=== PATIENT | female | born 1985 | race Caucasian/White ===

== ENCOUNTER → 2019-06-08 | Outpatient (CLI) | payer BC ==
[2019-06-08 13:48] LABS: HEMATOCRIT 36 % (35-52); HEMOGLOBIN 12.3 G/DL (11.5-16.0); MEAN CORPUSCULAR HEMOGLOBIN 29 PG (25-34); WHITE BLOOD COUNT 6.7 10^3/uL (4.3-11.0)
[2019-06-08 13:49] LABS: BASOPHILS % (AUTO) 0 % (0-10); EOSINOPHILS # (AUTO) 0.1 10^3/uL (0.0-0.3); EOSINOPHILS % (AUTO) 1 % (0-10); LYMPHOCYTES # (AUTO) 1.5 X 10^3 (1.0-4.0); LYMPHOCYTES % (AUTO) 22 % (12-44); MEAN CORPUSCULAR HGB CONC 34 G/DL (32-36); MEAN CORPUSCULAR VOLUME 85 FL (80-99); MEAN PLATELET VOLUME 10.2 FL (7.4-10.4); MONOCYTES # (AUTO) 0.4 X 10^3 (0.0-1.0); MONOCYTES % (AUTO) 6 % (0-12); NEUTROPHILS # (AUTO) 4.7 X 10^3 (1.8-7.8); NEUTROPHILS % (AUTO) 71 % (42-75); PLATELET COUNT 236 10^3/uL (130-400); RED CELL DISTRIBUTION WIDTH 12.8 % (10.0-14.5)
== END ==
LOC: LAB FS 11:39
PROVIDERS: ATTEND Family Medicine
DX: O09.90 Supervision of high risk pregnancy, unspecified, unspecified trimester (principal)
CPT/HCPCS: 36415; 80055; 84443; 86703; 87088

== ENCOUNTER → 2019-07-06 | Outpatient (CLI) | payer BC | LOC: LABNPT 11:25 | PROVIDERS: ATTEND Family Medicine | DX: Z34.90 Encounter for supervision of normal pregnancy, unspecified, unspecified trimester (principal) | CPT/HCPCS: 87491; 87591 ==

== ENCOUNTER → 2019-11-02 | Outpatient (CLI) | payer BC | LOC: LABNPT 14:37 | PROVIDERS: ATTEND Family Medicine | DX: Z34.90 Encounter for supervision of normal pregnancy, unspecified, unspecified trimester (principal); Z3A.00 Weeks of gestation of pregnancy not specified | CPT/HCPCS: 87081 ==

== ENCOUNTER 2019-11-16 10:31 | Inpatient (IN) | payer BC ==
[2019-11-16] VITALS (62 sets, daily range): BP systolic 84–153; BP diastolic 42–79
[~2019-11-16] VITALS: Ht 160 cm; Wt 101.1 kg
--- NOTE | 2019-11-16 10:37 | NUR ---
DEN FIERRO presented to unit via ambulation from office, accompanied by S.O., with c/o LABOR. DEN FIERRO weighed, gowned, voided, and to bed. EFHM and TOCO applied, VS taken. DEN FIERRO oriented to bed controls, call light, TV, heat, and A/C controls.
[2019-11-16] MEDS ORDERED: MINERAL OIL CONCENTRATE 99.9% 15 ML UDC TOP PRN (10:45)
[2019-11-16] MEDS ORDERED: D5 LR IV SOLUTION 1,000 ML IV ONE (11:00)
[2019-11-16] MEDS: D5 LR IV SOLUTION 1,000 ML IV SCH ×2 (11:18→18:10)
[2019-11-16 11:29] LABS: BASOPHILS % (AUTO) 0 % (0-10); EOSINOPHILS % (AUTO) 0 % (0-10); HEMATOCRIT 31 % (35-52); HEMOGLOBIN 10.3 G/DL (11.5-16.0); LYMPHOCYTES # (AUTO) 1.6 X 10^3 (1.0-4.0); LYMPHOCYTES % (AUTO) 20 % (12-44); MEAN CORPUSCULAR HEMOGLOBIN 27 PG (25-34); MEAN CORPUSCULAR HGB CONC 33 G/DL (32-36); MEAN CORPUSCULAR VOLUME 80 FL (80-99); MEAN PLATELET VOLUME 9.8 FL (7.4-10.4); MONOCYTES # (AUTO) 0.4 X 10^3 (0.0-1.0); MONOCYTES % (AUTO) 5 % (0-12); NEUTROPHILS # (AUTO) 6.2 X 10^3 (1.8-7.8); NEUTROPHILS % (AUTO) 75 % (42-75); PLATELET COUNT 252 10^3/uL (130-400); RED CELL DISTRIBUTION WIDTH 14.4 % (10.0-14.5); WHITE BLOOD COUNT 8.3 10^3/uL (4.3-11.0)
[2019-11-16] MEDS ORDERED: fentaNYL 2 mcg/ml BUPIVA 0.125 100 ML ONE (11:53)
[2019-11-16] MEDS ORDERED: BUPIVACAINE 0.25% 30 ML (SENSORCAINE) VIAL ONE (12:01)
[2019-11-16] MEDS ORDERED: fentaNYL INJECTION 100 MCG/2 ML AMP ONE (12:01)
[2019-11-16] MEDS ORDERED: OXYTOCIN PRE-MIX DRIP 500 ML IV SCH ×2 (12:21→22:23)
[2019-11-16] MEDS: fentaNYL 2 mcg/ml BUPIVA 0.125 100 ML IV SCH ×2 (12:27→20:21)
[2019-11-16] MEDS ORDERED: LACTATED RINGERS 1,000 ML IV ONE (12:37)
[2019-11-16] MEDS ORDERED: ONDANSETRON 4 MG/2 ML (SDV) Z0FRAN IV PRN (12:45)
[2019-11-16] MEDS ORDERED: diphenhydrAMINE 50 MG/ML INJ (BENADRYL) IV PRN (12:45)
[2019-11-16] MEDS ORDERED: NALOXONE 0.4 MG/ML 1 ML (NARCAN) VIAL IV PRN (12:45)
[2019-11-16] MEDS ORDERED: CATHETER FLUSH 10 ML SYR IV PRN (12:45)
[2019-11-16] MEDS ORDERED: CATHETER FLUSH 10 ML SYR IV SCH (14:00)
[2019-11-16] MEDS ORDERED: PREN-102 PO (18:05)
--- NOTE | 2019-11-16 18:41 | Labor Progress Note ---
Labor Progress Note Labor Progress Note Date Seen by Provider: Nov 16, 2019 Time Seen by Provider: 18:30 Subjective: Pt denies complaints. Epidural is very effective, right leg entirely numb. Objective: Vital Signs 11/16/19 11/16/19 14:40 17:35 Temp 36.7 Pulse 101 Resp 16 B/P (MAP) 123/62 (82) Pulse Ox 98 O2 Delivery Room Air Cervical exam: [6/-1] Consistency: [Soft] Position: [Midline] Presentation: [Vertex] heart tones: [150] beats per minute, [moderate] variability, reactive, accels, no decels Tocometer: [4] ctx/10 minutes Assessment/Plan: Germania Taylor is a (34 /Para 3/2 ,Gestational Age (wks)38 (days) 1 here for [labor]. CEFM/TOCO Continue pitocin Amniotomy, no fluid expulsion, head well engaged Anesthesia: [Epidural] Anticipate vaginal delivery. Nurse, Maria Fernanda Babcock, communicated the above findings with Dr. Wade. Vitals - Labs Vital Signs - I&O Vital Signs Date Time Temp Pulse Resp B/P (MAP) Pulse Ox O2 Delivery O2 Flow Rate FiO2 11/16/19 17:35 36.7 101 16 123/62 (82) Room Air 11/16/19 17:20 100 16 128/64 (85) Room Air 11/16/19 17:05 103 16 104/52 (69) Room Air 11/16/19 16:50 100 16 104/50 (68) Room Air 11/16/19 16:35 36.5 106 16 90/53 (65) Room Air 11/16/19 16:20 106 16 92/50 (64) Room Air 11/16/19 16:10 106 16 112/51 (71) Room Air 11/16/19 15:50 89 16 128/62 (84) Room Air 11/16/19 15:35 93 16 124/63 (83) Room Air 11/16/19 15:20 96 16 123/58 (79) Room Air 11/16/19 15:05 96 16 119/60 (79) Room Air 11/16/19 14:50 97 16 118/59 (78) Room Air 11/16/19 14:40 36.6 97 16 116/62 (80) 98 Room Air 8/24/20 14:20 97 16 118/66 (83) 95 Room Air 11/16/19 14:05 99 16 126/59 (81) 98 Room Air 11/16/19 13:50 110 16 117/63 (81) 94 Room Air 11/16/19 13:34 112 16 131/72 (91) 96 Room Air 11/16/19 13:28 102 16 132/62 (85) 94 Room Air 11/16/19 13:22 94 16 129/67 (87) 94 Room Air 11/16/19 13:18 105 16 123/64 (83) 95 Room Air 11/16/19 13:13 113 16 122/58 (79) 96 Room Air 11/16/19 13:08 36.6 113 16 119/59 (79) 96 Room Air 11/16/19 13:00 112 16 118/57 (77) 94 Room Air 11/16/19 12:57 104 16 119/59 (79) 93 Room Air 11/16/19 12:54 116 16 112/57 (75) 95 Room Air 11/16/19 12:51 109 16 119/60 (79) 96 Room Air 11/16/19 12:48 118 16 115/58 (77) Room Air 11/16/19 12:45 114 16 109/56 (73) 96 Room Air 11/16/19 12:42 114 16 123/58 (79) Room Air 11/16/19 12:39 115 16 104/52 (69) 97 Room Air 11/16/19 12:36 120 16 91/50 (64) 97 Room Air 11/16/19 12:31 122 16 84/48 (60) 96 Room Air 11/16/19 12:30 84 16 85/42 (56) 97 Room Air 11/16/19 12:27 112 16 120/58 (78) 98 Room Air 11/16/19 12:24 114 16 122/67 (85) 98 Room Air 11/16/19 12:20 101 16 134/69 (90) 97 Room Air 11/16/19 12:10 102 16 129/75 (93) 98 Room Air 11/16/19 10:55 36.5 100 18 98 Room Air Labs Laboratory Tests 11/16/19 11:15: White Blood Count 8.3, Red Blood Count 3.87L, Hemoglobin 10.3L, Hematocrit 31L, Mean Corpuscular Volume 80, Mean Corpuscular Hemoglobin 27, Mean Corpuscular Hemoglobin Concent 33, Red Cell Distribution Width 14.4, Platelet Count 252, Mean Platelet Volume 9.8, Neutrophils (%) (Auto) 75, Lymphocytes (%) (Auto) 20, Monocytes (%) (Auto) 5, Eosinophils (%) (Auto) 0, Basophils (%) (Auto) 0, Neutrophils # (Auto) 6.2, Lymphocytes # (Auto) 1.6, Monocytes # (Auto) 0.4, Eosinophils # (Auto) 0.0, Basophils # (Auto) 0.0 JESSICA MANN MD Nov 16, 2019 18:41
--- NOTE | 2019-11-16 21:32 | History & Physical-OB ---
OB - Chief Complaint & HPI Date/Time Date of Admission: Date of Admission: Nov 16, 2019 at 10:31 Date seen by a Provider: Nov 16, 2019 Time Seen by a Provider: 20:00 Chief Complaint/History OB-Reason for Admission/Chief: Onset of Labor Hx : 3 Hx Para: 2 Expected Date of Delivery: Nov 29, 2019 Gestational Age in Weeks: 38 Gestational Age in Days: 1 Admission Nurse Assessment Rev: Yes Allergies and Home Medications Allergies Coded Allergies: No Known Drug Allergies (Unverified , 11/16/19) Patient Home Medication List Home Medication List Reviewed: Yes OB - History Hx of Present Care: Yes Ultrasounds: Normal mid trimester US Obstetrical Complications: None Medical Complications: None Patient Past Medical History previously healthy Social History/Family History HIV/AIDS: No Recent Infectious Disease Expo: No Sexually Transmitted Disease: No Alcohol Use: Denies Use Recreational Drug Use: No Immunizations Hepatitis A: Yes Hepatitis B: Yes OB - Admission Exam Physical Exam Vitals: Vital Signs 11/16/19 11/16/19 11/16/19 14:40 19:05 20:20 Temp 36.8 Pulse 100 Resp 16 B/P (MAP) 114/57 (76) Pulse Ox 98 O2 Delivery Room Air HEENT: NCAT Heart: Rhythm Normal Lungs: Clear Abdomen: Gravid Extremities: Normal Reflexes: Normal Cervical Dilatation: 6cm Effacement: 75% Station: 0 Membranes: Ruptured Amniotic Fluid: Clear Heart Rate: 130's Accelerations: Accelerations Present Decelerations: Variable Decelerations Short Term Variability: Present Monitoring Engineer Variability: Average (6-25) Contractions on Admission: < 5 Minutes Apart Labs Laboratory Tests Test 11/16/19 11:15 Range/Units White Blood Count 8.3 4.3-11.0 10^3/uL Red Blood Count 3.87 L 4.35-5.85 10^6/uL Hemoglobin 10.3 L 11.5-16.0 G/DL Hematocrit 31 L 35-52 % Mean Corpuscular Volume 80 80-99 FL Mean Corpuscular Hemoglobin 27 25-34 PG Mean Corpuscular Hemoglobin Concent 33 32-36 G/DL Red Cell Distribution Width 14.4 10.0-14.5 % Platelet Count 252 130-400 10^3/uL Mean Platelet Volume 9.8 7.4-10.4 FL Neutrophils (%) (Auto) 75 42-75 % Lymphocytes (%) (Auto) 20 12-44 % Monocytes (%) (Auto) 5 0-12 % Eosinophils (%) (Auto) 0 0-10 % Basophils (%) (Auto) 0 0-10 % Neutrophils # (Auto) 6.2 1.8-7.8 X 10^3 Lymphocytes # (Auto) 1.6 1.0-4.0 X 10^3 Monocytes # (Auto) 0.4 0.0-1.0 X 10^3 Eosinophils # (Auto) 0.0 0.0-0.3 10^3/uL Basophils # (Auto) 0.0 0.0-0.1 10^3/uL OB - Assessment/Plan/Diagnosis Assessment Assessment: active labor Admission Dx Normal labor at 38 1/7 wga. Admission Status: Inpatient Order (span 2 midnights) Reason for Inpatient Admission: Normal labor. Plan Induction Method: per Pitocin Protocol Other Plan GBS negative. AROM and pitocin to help augment. RACHAEL SOLANO MD Nov 16, 2019 21:32
[2019-11-16] MEDS ORDERED: LIDOCAINE/EPI 2% 1:200,00 (XYLOCAINE) 10 ML VIAL ONE (21:47)
--- NOTE | 2019-11-16 22:23 | OB Labor & Delivery Record ---
Vag Delivery Note Vag Delivery Note Date of Delivery: 11/16/19 Preoperative Diagnosis: Germania Taylor is a (34 /Para 3 / 2, Gestational Age (wks)38with [1 day] Postoperative Diagnosis: Same Surgeon: RACHAEL SOLANO Data Solutions Architect: [none] Anesthesia: [epidural] Delivery Type: [] Findings: Viable [male] infant, apgars [9/9], weight [9 pounds 0 ounces] Lacerations: Intact placenta with 3 vessel cord. No nuchal cord, body cord or shoulder dystocia Estimated Blood Loss: [250] ml Complications: None Condition: Stable Description of Procedure: The patient is a 34 year old female who presented [in labor]. She was admitted and informed consent was obtained. Her labor course was remarkable for [nothing] She progressed to complete dilatation and began to push. She was then set up for delivery. The 's head was delivered atraumatically in the [OA] position. The shoulders and remainder of the infant's body were then delivered without difficulty. Upon delivery, the head was held below the level of the perineum and the mouth and nares were bulb suctioned. The cord was doubly clamped and cut after 60 seconds by father of the baby. An intact placenta with 3-vessel cord delivered via [place] and there was found to be minimal bleeding.~ Vigorous fundal massage was performed and the fundus was found to be firm. IV oxytocin was given. Examination of the vagina and perineum revealed a [1st degree perineal and right labial] laceration repaired in the usual fashion with 3-0 vicryl suture. Following the repair, sponge, instrument and needle counts were correct. Mom and baby were both in stable condition in the labor suite. Vitals - Labs Vital Signs - I&O Vital Signs Date Time Temp Pulse Resp B/P (MAP) Pulse Ox O2 Delivery O2 Flow Rate FiO2 11/16/19 20:20 100 16 114/57 (76) Room Air 11/16/19 20:05 103 16 117/61 (79) Room Air 11/16/19 19:50 120 16 110/58 (75) Room Air 11/16/19 19:35 106 16 110/59 (76) Room Air 11/16/19 19:20 100 16 114/55 (74) Room Air 11/16/19 19:05 36.8 104 16 115/55 (75) Room Air 11/16/19 18:50 102 16 108/56 (73) Room Air 11/16/19 18:35 114 16 106/59 (75) Room Air 11/16/19 18:20 101 16 109/56 (73) Room Air 20 18:05 114 16 118/57 (77) Room Air 11/16/19 17:50 113 16 125/60 (81) Room Air 11/16/19 17:35 36.7 101 16 123/62 (82) Room Air 11/16/19 17:20 100 16 128/64 (85) Room Air 11/16/19 17:05 103 16 104/52 (69) Room Air 11/16/19 16:50 100 16 104/50 (68) Room Air 11/16/19 16:35 36.5 106 16 90/53 (65) Room Air 11/16/19 16:20 106 16 92/50 (64) Room Air 11/16/19 16:10 106 16 112/51 (71) Room Air 11/16/19 15:50 89 16 128/62 (84) Room Air 11/16/19 15:35 93 16 124/63 (83) Room Air 11/16/19 15:20 96 16 123/58 (79) Room Air 11/16/19 15:05 96 16 119/60 (79) Room Air 11/16/19 14:50 97 16 118/59 (78) Room Air 11/16/19 14:40 36.6 97 16 116/62 (80) 98 Room Air 11/16/19 14:20 97 16 118/66 (83) 95 Room Air 11/16/19 14:05 99 16 126/59 (81) 98 Room Air 11/16/19 13:50 110 16 117/63 (81) 94 Room Air 11/16/19 13:34 112 16 131/72 (91) 96 Room Air 11/16/19 13:28 102 16 132/62 (85) 94 Room Air 11/16/19 13:22 94 16 129/67 (87) 94 Room Air 11/16/19 13:18 105 16 123/64 (83) 95 Room Air 11/16/19 13:13 113 16 122/58 (79) 96 Room Air 11/16/19 13:08 36.6 113 16 119/59 (79) 96 Room Air 11/16/19 13:00 112 16 118/57 (77) 94 Room Air 11/16/19 12:57 104 16 119/59 (79) 93 Room Air 11/16/19 12:54 116 16 112/57 (75) 95 Room Air 11/16/19 12:51 109 16 119/60 (79) 96 Room Air 11/16/19 12:48 118 16 115/58 (77) Room Air 11/16/19 12:45 114 16 109/56 (73) 96 Room Air 11/16/19 12:42 114 16 123/58 (79) Room Air 11/16/19 12:39 115 16 104/52 (69) 97 Room Air 11/16/19 12:36 120 16 91/50 (64) 97 Room Air 11/16/19 12:31 122 16 84/48 (60) 96 Room Air 11/16/19 12:30 84 16 85/42 (56) 97 Room Air 11/16/19 12:27 112 16 120/58 (78) 98 Room Air 11/16/19 12:24 114 16 122/67 (85) 98 Room Air 11/16/19 12:20 101 16 134/69 (90) 97 Room Air 11/16/19 12:10 102 16 129/75 (93) 98 Room Air 11/16/19 10:55 36.5 100 18 98 Room Air Labs Laboratory Tests 11/16/19 11:15: White Blood Count 8.3, Red Blood Count 3.87L, Hemoglobin 10.3L, Hematocrit 31L, Mean Corpuscular Volume 80, Mean Corpuscular Hemoglobin 27, Mean Corpuscular Hemoglobin Concent 33, Red Cell Distribution Width 14.4, Platelet Count 252, Mean Platelet Volume 9.8, Neutrophils (%) (Auto) 75, Lymphocytes (%) (Auto) 20, Monocytes (%) (Auto) 5, Eosinophils (%) (Auto) 0, Basophils (%) (Auto) 0, Neutrophils # (Auto) 6.2, Lymphocytes # (Auto) 1.6, Monocytes # (Auto) 0.4, Eosinophils # (Auto) 0.0, Basophils # (Auto) 0.0 RACHAEL SOLANO MD Nov 16, 2019 22:23
[2019-11-16] MEDS ORDERED: TETANUS,DIPTH,PERTUSS P/F (BOOSTRIX) 0.5 ML VIAL IM ONE (22:30)
[2019-11-16] MEDS ORDERED: WITCH HAZEL(TUCKS) 40 EA JAR TOP PRN (22:30)
[2019-11-16] MEDS ORDERED: BENZOCAINE/MENTHOL (DERMOPLAST) 60 ML CAN TP PRN (22:30)
[2019-11-16] MEDS ORDERED: MEASLES,MUMPS,RUBELLA 1 EA INJ SQ ONE (22:30)
[2019-11-16] MEDS: IBUPROFEN 600 MG (MOTRIN) TAB PO SCH (23:08)
--- NOTE | 2019-11-17 | NUR ---
Pericare completed, ff 1 below, light/moderate rubra. gown changed. Pt assisted to the w'c and taken to room 312. Pt assisted into bed. right leg still numb. pt denies the urge to void. info papers explained. pt denies any needs at this time. will continue to monitor.
--- NOTE | 2019-11-17 00:15 | NUR ---
ASSUMED CARE OF PT AT THIS TIME. REPORT RECEIVED FROM RU ALCANTARA
[2019-11-17] MEDS: D5 LR IV SOLUTION 1,000 ML IV SCH (03:14)
[2019-11-17 03:15] VITALS: BP 122/69
[2019-11-17] MEDS: fentaNYL 2 mcg/ml BUPIVA 0.125 100 ML IV SCH (03:48)
[2019-11-17] MEDS: ACETAMINOPHEN 500 MG TAB (TYLENOL) PO SCH ×2 (05:09→14:15)
[2019-11-17] MEDS: IBUPROFEN 600 MG (MOTRIN) TAB PO SCH ×3 (05:09→18:34)
[2019-11-17 05:47] LABS: BASOPHILS % (AUTO) 0 % (0-10); EOSINOPHILS % (AUTO) 0 % (0-10); HEMATOCRIT 27 % (35-52); LYMPHOCYTES # (AUTO) 1.7 X 10^3 (1.0-4.0); LYMPHOCYTES % (AUTO) 12 % (12-44); MEAN CORPUSCULAR HGB CONC 33 G/DL (32-36); MEAN CORPUSCULAR VOLUME 81 FL (80-99); MEAN PLATELET VOLUME 10.2 FL (7.4-10.4); MONOCYTES % (AUTO) 7 % (0-12); NEUTROPHILS # (AUTO) 11.4 X 10^3 (1.8-7.8); NEUTROPHILS % (AUTO) 81 % (42-75); PLATELET COUNT 231 10^3/uL (130-400); RED CELL DISTRIBUTION WIDTH 14.8 % (10.0-14.5); WHITE BLOOD COUNT 14.1 10^3/uL (4.3-11.0)
[2019-11-17 05:48] LABS: MEAN CORPUSCULAR HEMOGLOBIN 26 PG (25-34)
[2019-11-17] MEDS ORDERED: CATHETER FLUSH 10 ML SYR IV SCH (06:00)
--- NOTE | 2019-11-17 07:28 | Anesthesia-Regional Post-Op ---
Regional Patient Condition Mental Status: Alert, Oriented x3 Circulation: Same as Pre-Op Headache: Absent Sensation: Full Recovery Motor Block: Absent Post Op Complications Complications None Follow Up Care/Instructions Patient Instructions None needed. Anesthesia/Patient Condition Patient is doing well, no complaints, stable vital signs, no apparent adverse anesthesia problems. No complications reported per nursing. ASCENCION GAY CRNA Nov 17, 2019 07:28
--- NOTE | 2019-11-17 07:45 | NUR ---
DR. SOLANO HERE TO SEE PT.
--- NOTE | 2019-11-17 08:30 | NUR ---
TOWELS GIVEN FOR SHOWER.
--- NOTE | 2019-11-17 08:50 | NUR ---
INFANT TO NURSERY. MOANING AND HAS SPIT UP FEEDINGS.
[2019-11-17] MEDS ORDERED: DOCUSATE SODIUM 100 MG (COLACE) CAP PO SCH (09:00)
[2019-11-17 09:30] VITALS: BP 109/65
--- NOTE | 2019-11-17 09:30 | NUR ---
ASSESSMENT COMPLETED. VSS. CARING FOR IN ROOM. GOOD INTERACTION NOTED.
--- NOTE | 2019-11-17 09:35 | NUR ---
DENIES PAIN AT THIS TIME. HAD BAD CRAMPING EARLIER. DR. SOLANO WILL PUT IN AN ORDER FOR SOMETHING STRONGER IF NEEDED.
--- NOTE | 2019-11-17 10:00 | NUR ---
IN TO SEE PT PRN.
[2019-11-17 12:30] VITALS: BP 110/66
--- NOTE | 2019-11-17 12:30 | NUR ---
CONTINUES TO DENY PAIN. RESTING IN BED. PT SHOWERED EARLIER. CONTINUES TO CARE FOR IN ROOM. GOOD INTERACTION NOTED.
--- NOTE | 2019-11-17 14:00 | NUR ---
RESTING IN BED. STATES SORE BUT NOT NEEDING PAIN MED AT THIS TIME.
--- NOTE | 2019-11-17 15:50 | NUR ---
ORDERS RECEIVED FROM DR. SOLANO FOR PT'S DISMISSAL TO ROOMING IN [facility].
[2019-11-17] MEDS ORDERED: IBUP-844 PO (15:53)
--- NOTE | 2019-11-17 15:53 | Discharge Summary ---
Discharge Inst-[facility] Reconcile Patient Problems Problems Reviewed?: Yes Depart Medications New, Converted or Re-Newed RX: Call to Patients Pharmacy Follow Up/Instructions Goal/Follow Up: [address] Solano Activity Activity: Activity as Tolerated Driving Instructions: You May Drive NO SMOKING: NO SMOKING Nothing Inside Vagina: No Douching, No Raymer, No Tampons Diet Discharge Diet: No Restrictions Symptoms to Report to : Fever Over 101 Degrees F, Vaginal Bleeding Increase RACHAEL SOLANO MD Nov 17, 2019 15:53
--- NOTE | 2019-11-17 15:56 | Discharge Summary ---
Diagnosis/Chief Complaint Date of Admission Nov 16, 2019 at 10:31 Date of Discharge Nov 17, 2019 Admission Diagnosis Admission Diagnosis Term labor at 38 1/7 wga Discharge Diagnosis Term vaginal delivery at 38 1/7 wga Discharge Summary-OBS Procedures None. Discharge Physical Examination Allergies: Coded Allergies: No Known Drug Allergies (Unverified , 11/16/19) Vitals & I&Os Intake and Output 11/17/19 00:00 Intake Total 3000 ml Balance 3000 ml Vital Sign - Last 12Hours Date Time Temp Pulse Resp B/P (MAP) Pulse Ox O2 Delivery O2 Flow Rate FiO2 11/17/19 12:30 36.7 95 16 110/66 (81) 96 Room Air General Appearance: Alert, Oriented X3 HEENT: PERRLA Respiratory: Clear to Auscultation Cardiovascular: Regular Rate Abdominal: Normal Bowel Sounds, Other (unterus firm below umbilicus) Extremities: No Edema Skin: No Rashes Neuro: Normal Gait, Normal Speech Psych/Mental Status: Mental Status NL Hospital Course Was the Problem List Reviewed?: Yes Unremarkable post- course. Labs Laboratory Tests 11/17/19 05:27: White Blood Count 14.1H, Red Blood Count 3.40L, Hemoglobin 9.0L, Hematocrit 27L, Mean Corpuscular Volume 81, Mean Corpuscular Hemoglobin 26, Mean Corpuscular Hemoglobin Concent 33, Red Cell Distribution Width 14.8H, Platelet Count 231, Mean Platelet Volume 10.2, Neutrophils (%) (Auto) 81H, Lymphocytes (%) (Auto) 12, Monocytes (%) (Auto) 7, Eosinophils (%) (Auto) 0, Basophils (%) (Auto) 0, Neutrophils # (Auto) 11.4H, Lymphocytes # (Auto) 1.7, Monocytes # (Auto) 1.0, Eosinophils # (Auto) 0.0, Basophils # (Auto) 0.0 Discharge Instructions to patient/family Please see electronic discharge instructions given to patient. Discharge Medications Reviewed and agree with Discharge Medication list on patient's Discharge Instruction sheet Clinical Quality Measures DVT/VTE Risk/Contraindication: Risk Factor Score Per Nursin RFS Level Per Nursing on Admit: 2=Moderate RACHAEL SOLANO MD Nov 17, 2019 15:56
[2019-11-17 16:00] VITALS: BP 125/64
--- NOTE | 2019-11-17 16:00 | NUR ---
VSS. CONTINUES TO CARE FOR . DOING WELL.
--- NOTE | 2019-11-17 18:15 | NUR ---
EATING DINNER. OFFERS NO COMPLAINTS AT THIS TIME.
[2019-11-17 18:50] VITALS: BP 125/64
--- NOTE | 2019-11-17 18:50 | NUR ---
DISCHARGE INSTRUCTIONS REVIEWED WITH COPY GIVEN. STATES UNDERSTANDING OF ALL INSTRUCTIONS AND NEED TO F/U SCHEDULED AND NEEDED. PT DISMISSED FROM [facility] IN STABLE CONDITION TO A ROOMING-IN PARENT R/T INFANT NEEDING TO REMAIN A PATIENT.
== END 2019-11-17 18:50 | disposition home or self-care (01) | DRG 807 ==
LOC: LDRP 10:31
PROVIDERS: ADMIT Family Medicine; ATTEND Family Medicine
PROC: 10E0XZZ Delivery of Products of Conception, External Approach (ICD-10-PCS; principal; 2019-11-16)
PROC: 0HQ9XZZ Repair Perineum Skin, External Approach (ICD-10-PCS; 2019-11-16)
DX: O70.0 First degree perineal laceration during delivery (principal); Z37.0 Single live birth; Z3A.38 38 weeks gestation of pregnancy
CPT/HCPCS: 36415; 85025; 86850; 86900; 86901